=== PATIENT | male | born 1985 | race American Indian/Alaskan Native ===

== ENCOUNTER 2018-01-30 14:34 | Emergency (ER) | payer SELFPAY ==
[2018-01-30 15:12] VITALS: TEMP 98.3
--- NOTE | 2018-01-30 16:24 | RAD ---
HISTORY: admission COMPARISON: No prior. FINDINGS: LUNGS: No active pulmonary disease. PLEURA: No significant pleural effusion identified, no pneumothorax apparent. CARDIOVASCULAR: Normal. OSSEOUS STRUCTURES: No significant abnormalities. VISUALIZED UPPER ABDOMEN: Normal. OTHER FINDINGS: None. IMPRESSION: No active disease.
[2018-01-30 17:05] LABS: BASO # 0.01 K/mm3 (0.0-2.0); BASO % 0.1 % (0.0-3.0); EOS % 0.3 % (1.5-5.0); GRAN # 6.56 (1.4-6.5); GRAN % 74.3 % (50.0-68.0); HEMOGLOBIN 14.2 g/dL (14.0-18.0); LYMPH # 1.9 (1.2-3.4); LYMPH % 21.3 % (22.0-35.0); MEAN CELL VOLUME 86.7 fl (80.0-105.0); MEAN CORPUSCULAR HEMOGLOBIN 29.2 pg (25.0-35.0); MEAN CORPUSCULAR HGB CONC 33.6 g/dl (31.0-37.0); MEAN PLATELET VOLUME 11.5 fl (7.0-11.0); MONO # 0.4 (0.1-0.6); RBC 4.87 10^6/uL (3.5-6.1); RED CELL DISTRIBUTION WIDTH 12.3 % (11.5-14.5); URINE BILIRUBIN NEGATIVE (NEGATIVE); URINE BLOOD NEGATIVE (NEGATIVE); URINE GLUCOSE (UA) NEGATIVE (NEGATIVE); URINE LEUKOCYTE ESTERASE NEGATIVE Leu/uL (NEGATIVE); URINE PROTEIN NEGATIVE mg/dL (<30 mg/dL); URINE UROBILINOGEN 0.2 E.U./dL (<1 E.U./dL); WHITE BLOOD COUNT 8.8 10^3/ul (4.5-11.0)
[2018-01-30 17:06] LABS: URINE APPEARANCE CLEAR (CLEAR); URINE COLOR YELLOW (YELLOW)
[2018-01-30 17:13] LABS: ACETAMINOPHEN < 10.0 ug/ml (10.0-20.0); SALICYLATE < 1 mg/dL (2.0-20.0)
[2018-01-30 17:15] LABS: ALB/GLOB RATIO 1.4 (1.1-1.8); ALBUMIN 4.4 g/dL (3.0-4.8); ALT/SGPT 32 U/L (7-56); AST/SGOT 22 U/L (17-59); BLOOD UREA NITROGEN 14 mg/dL (7-21); CALCIUM 9.4 mg/dL (8.4-10.5); GFR AFRICAN-AMERICAN > 60; GFR NON-AFRICAN AMERICAN > 60
[2018-01-30 17:34] LABS: BARBITURATES, UR NEGATIVE (NEGATIVE); BENZODIAZEPINES, UR NEGATIVE (NEGATIVE); OPIATES, UR NEGATIVE (NEGATIVE); PHENCYCLIDINE, UR NEGATIVE (NEGATIVE)
--- NOTE | 2018-01-30 17:46 | ED PDOC ---
Arrival/HPI - General Historian: Patient <Ofelia Denis A - Last Filed: 01/31/18 01:42> <Tobias Calvo - Last Filed: 01/31/18 06:48> - General Chief Complaint: Psychiatric Evaluation Time Seen by Provider: 01/30/18 15:06 - History of Present Illness Narrative History of Present Illness (Text): 01/30/18 17:42 32yo male with no past medical history who present to Emergency department for psychiatric evaluation. Patient report depression and suicidal thoughts secondary to his financial situation. States he know that he can't commit suicide, but feels he needs therapy. He denies homicidal ideation, hallucination , somatic complaint, any other complaint. (Ofelia Denis A) Past Medical History - Provider Review Nursing Documentation Reviewed: Yes - Infectious Disease Hx of Infectious Diseases: None - Cardiac Hx Cardiac Disorders: No Hx Hypertension: No - Pulmonary Hx Tuberculosis: No - Neurological HX Cerebrovascular Accident: No Hx Seizures: No - Hematological/Oncological Hx Cancer: No - Genitourinary/Gynecological Hx Sexually Transmitted Diseases: No - Psychiatric Hx Substance Use: No - Anesthesia Hx Anesthesia: No <Ofelia Denis A - Last Filed: 01/31/18 01:42> Family/Social History - Physician Review Nursing Documentation Reviewed: Yes Family/Social History: Unknown Family HX Smoking Status: Unknown If Ever Smoked Hx Alcohol Use: Yes Frequency of alcohol use: Socially Hx Substance Use: No Substance used: MARIJUANA <Ofelia Denis A - Last Filed: 01/31/18 01:42> Allergies/Home Meds <Ofelia Denis A - Last Filed: 01/31/18 01:42> <Tobias Calvo - Last Filed: 01/31/18 06:48> Allergies/Adverse Reactions: Allergies aspirin Allergy (Verified 01/30/18 15:16) RASH Home Medications: Home Meds Medication Instructions Recorded Confirmed No Known Home Med 01/30/18 01/30/18 Review of Systems - Physician Review All systems were reviewed & negative as marked: Yes - Review of Systems Constitutional: Normal Eyes: Normal ENT: Normal Respiratory: Normal Cardiovascular: Normal Gastrointestinal: Normal Genitourinary Male: Normal Musculoskeletal: Normal Skin: Normal Neurological: Normal Endocrine: Normal Hemo/Lymphatic: Normal Psychiatric: Depression, Suicidal Ideation <Ofelia Denis A - Last Filed: 01/31/18 01:42> Physical Exam Vital Signs Reviewed: Yes Temperature: Afebrile Blood Pressure: Normal Pulse: Regular Respiratory Rate: Normal Appearance: Positive for: Well-Appearing, Non-Toxic, Comfortable Pain Distress: None Mental Status: Positive for: Alert and Oriented X 3 - Systems Exam Head: Present: Atraumatic, Normocephalic Pupils: Present: PERRL Extroacular Muscles: Present: EOMI Conjunctiva: Present: Normal Mouth: Present: Moist Mucous Membranes Neck: Present: Normal Range of Motion Respiratory/Chest: Present: Clear to Auscultation, Good Air Exchange. No: Respiratory Distress, Accessory Muscle Use Cardiovascular: Present: Regular Rate and Rhythm, Normal S1, S2. No: Murmurs Abdomen: No: Tenderness, Distention, Peritoneal Signs Back: Present: Normal Inspection Upper Extremity: Present: Normal Inspection. No: Cyanosis, Edema Lower Extremity: Present: Normal Inspection. No: Edema Neurological: Present: GCS=15, CN II-XII Intact, Speech Normal Skin: Present: Warm, Dry, Normal Color. No: Rashes Psychiatric: Present: Alert, Oriented x 3, Normal Insight, Normal Concentration , Depressed Mood <Ofelia Denis A - Last Filed: 01/31/18 01:42> Vital Signs Temp Pulse Resp BP Pulse Ox 01/31/18 05:11 80 17 112/63 100 01/31/18 00:18 71 18 115/68 100 01/30/18 22:15 65 17 119/63 99 01/30/18 19:00 68 17 122/74 99 01/30/18 15:11 98.3 F 77 18 112/78 99 Medical Decision Making <Ofelia Denis A - Last Filed: 01/31/18 01:42> <Tobias Calvo - Last Filed: 01/31/18 06:48> ED Course and Treatment: 01/30/18 17:45 PT present to Emergency department for stated history. He was hemodynamically stable. Lab was reviewed and pt was medically cleared for psychiatric evaluation. EKG NSR @76bpm Chest xray NAD Pt was seen by the PES screener Clare and he declined to signed in voluntarily , so he will be screened by [facility] [place]. 01/31/18 01:42 PT remain calm and comfortable in Emergency department. He is pending screening from [facility] [place]. Case was endorsed to Dr. Calvo to f/u and dispo accordingly. (Ofelia Denis) 01/31/18 06:46 Pt. was screened by [facility] [place].Pt. not suicidal.Cleared for discharge.Pt. reevaluated as well by BROOKE Muñiz.Conferred with psychiatrist who agreed on discharge and follow up outpatient [facility].Pt. in agreement ( Tobias Calvo) - Lab Interpretations Lab Results: 01/30/18 16:58 01/30/18 16:58 Lab Results 01/30/18 16:58: Alcohol, Quantitative < 10 01/30/18 16:58: Salicylates < 1 L, Acetaminophen < 10.0 L 01/30/18 16:58: Urine Opiates Screen Negative, Urine Methadone Screen Negative, Ur Barbiturates Screen Negative, Ur Phencyclidine Scrn Negative, Ur Amphetamines Screen Negative, U Benzodiazepines Scrn Negative, U Oth Cocaine Metabols Negative, U Cannabinoids Screen Negative 01/30/18 16:58: Sodium 142, Potassium 4.0, Chloride 103, Carbon Dioxide 27, Anion Gap 16, BUN 14, Creatinine 1.1, Est GFR ( Amer) > 60, Est GFR (Non- Af Amer) > 60, Random Glucose 95, Calcium 9.4, Magnesium 1.9, Total Bilirubin 1.0, AST 22, ALT 32, Alkaline Phosphatase 67, Total Protein 7.6, Albumin 4.4, Globulin 3.2, Albumin/Globulin Ratio 1.4 01/30/18 16:58: Urine Color Yellow, Urine Appearance Clear, Urine pH 6.0, Ur Specific [place] 1.015, Urine Protein Negative, Urine Glucose (UA) Negative, Urine Ketones Trace H, Urine Blood Negative, Urine Nitrate Negative, Urine Bilirubin Negative, Urine Urobilinogen 0.2, Ur Leukocyte Esterase Negative 01/30/18 16:58: WBC 8.8, RBC 4.87, Hgb 14.2, Hct 42.2, MCV 86.7, MCH 29.2, MCHC 33.6, RDW 12.3, Plt Count 238, MPV 11.5 H, Gran % 74.3 H, Lymph % (Auto) 21.3 L , Angelina % (Auto) 4.0, Eos % (Auto) 0.3 L, Baso % (Auto) 0.1, Gran # 6.56 H, Lymph # (Auto) 1.9, Angelina # (Auto) 0.4, Eos # (Auto) 0.0, Baso # (Auto) 0.01 - RAD Interpretation Radiology Orders: 01/30/18 15:32 CHEST PORTABLE [RAD] Stat Disposition/Present on Arrival - Present on Arrival Any Indicators Present on Arrival: No History of DVT/PE: No History of Uncontrolled Diabetes: No Urinary Catheter: No History of Decub. Ulcer: No History Surgical Site Infection Following: None - Disposition Have Diagnosis and Disposition been Completed?: Yes <Ofelia Denis - Last Filed: 01/31/18 01:42> - Present on Arrival Any Indicators Present on Arrival: No History of DVT/PE: No History of Uncontrolled Diabetes: No Urinary Catheter: No History of Decub. Ulcer: No History Surgical Site Infection Following: None - Disposition Have Diagnosis and Disposition been Completed?: Yes Disposition Time: 06:45 Patient Plan: Discharge <Tobias Calvo - Last Filed: 01/31/18 06:48> - Disposition Diagnosis: Depression Disposition: HOME/ ROUTINE Patient Problems: Current Active Problems Problem Status Onset Depression Acute Suicidal ideation Acute Condition: STABLE Discharge Instructions (ExitCare): Depression, Adult (DC) Additional Instructions: Follow up [facility] clinic as instructed Referrals: [facility] [Outside] - Follow up with primary Forms: 0xdata (Indonesian)
[2018-01-31 07:19] VITALS: BP 119/76; PULSE 72; RESP 16; O2SAT 98
--- NOTE | 2018-01-31 23:56 | CARD ---
APPROVED REPORT EKG Measurement Heart [id number] <Conclusion> Normal sinus rhythm Nonspecific T wave abnormality Abnormal ECG
== END 2018-01-31 07:16 | disposition home or self-care (01) ==
LOC: ED 14:34
DX: F32.9 Major depressive disorder, single episode, unspecified (principal)
CPT/HCPCS: 71045; 80053; 81003; 83735; 85025; 90791; 93005; 99285; G0480